=== PATIENT | male | born 1970 | race African-American/Black ===

== ENCOUNTER 2016-12-21 05:56 | Emergency (ER) | payer BC, MEDICAID ==
[2015-02-09 10:46] VITALS: BMI 23.6
[~2016-12-21 05:56] MED LIST: BETAPACE 80 MG80 MG PO; GLUCOPHAGE1000 MG PO
[2016-12-21 07:03] LABS: BASOPHILS 0.2 % (0.0-2.0); EOSINOPHILS 0.3 % (0-7); HEMATOCRIT 39.1 % (42.0-54.0); HEMOGLOBIN 13.5 g/dL (13.5-17.5); IMMATURE GRANULOCYTES 0.4 % (0-5); LYMPHOCYTES 21.6 % (15-50); MCH 31.6 pg (26.0-34.0); MCHC 34.5 g/dL (31.0-37.0); MCV 91.6 fL (80.0-100.0); MEAN PLATELET VOLUME 11.3 fL (7.4-10.4); NEUTROPHILS 73.5 % (40-80); PLATELET COUNT 162 10x3/uL (130-400); RBC 4.27 10x6/uL (4.20-6.10); RDW 12.4 % (11.5-14.5)
[2016-12-21 07:20] LABS: ALKALINE PHOSPHATASE 113 U/L (46-116); ALT (SGPT) 33 U/L (10-68); BILIRUBIN - TOTAL 0.36 mg/dL (0.2-1.3); CALC OSMOLALITY 292 mosm/kg (275-300); CALCIUM 9.5 mg/dL (8.5-10.1); CARBON DIOXIDE 26.6 mmol/L (21.0-32.0); CHLORIDE - SERUM 101 mmol/L (98-107); CREATININE - SERUM 0.9 mg/dL (0.6-1.3); GLUCOSE 323 mg/dL (74-106); MAGNESIUM - SERUM 1.9 mg/dL (1.8-2.4); POTASSIUM - SERUM 3.7 mmol/L (3.5-5.1); SODIUM 139 mmol/L (136-145); UREA NITROGEN 20 mg/dL (7-18); eGFR NON AFRICAN AMERICAN > 90 mL/min (90-120)
== END 2016-12-21 08:25 | disposition home or self-care (01) ==
LOC: D.ER 05:56
PROVIDERS: Emergency Medicine
DX: R11.10 Vomiting, unspecified (principal); R19.7 Diarrhea, unspecified; R10.9 Unspecified abdominal pain; E11.9 Type 2 diabetes mellitus without complications

== ENCOUNTER 2017-01-06 10:51 | Emergency (ER) | payer MEDICAID, BC ==
[2015-02-09 10:46] VITALS: BMI 23.6
[2017-01-06 11:21] LABS: BASOPHILS 0.3 % (0.0-2.0); EOSINOPHILS 0.4 % (0-7); HEMATOCRIT 40.9 % (42.0-54.0); HEMOGLOBIN 14.1 g/dL (13.5-17.5); IMMATURE GRANULOCYTES 0.6 % (0-5); LYMPHOCYTES 31.4 % (15-50); MCHC 34.5 g/dL (31.0-37.0); MEAN PLATELET VOLUME 10.3 fL (7.4-10.4); MONOCYTES 7.2 % (2-11); NEUTROPHILS 60.1 % (40-80); RDW 12.3 % (11.5-14.5); WBC 7.2 10x3/uL (4.8-10.8)
[2017-01-06 11:23] LABS: PLATELET COUNT 230 10x3/uL (130-400)
[2017-01-06 11:34] LABS: APTT 23.7 SECONDS (22.8-39.4); INR 0.99 (0.85-1.17); PROTIME 12.9 SECONDS (11.6-15.0)
[2017-01-06 11:43] LABS: ALBUMIN 4.2 g/dL (3.4-5.0); ALKALINE PHOSPHATASE 100 U/L (46-116); ALT (SGPT) 30 U/L (10-68); BILIRUBIN - TOTAL 0.55 mg/dL (0.2-1.3); CALC OSMOLALITY 284 mosm/kg (275-300); CARBON DIOXIDE 25.9 mmol/L (21.0-32.0); CHLORIDE - SERUM 97 mmol/L (98-107); GLUCOSE 325 mg/dL (74-106); POTASSIUM - SERUM 3.8 mmol/L (3.5-5.1); SODIUM 136 mmol/L (136-145); UREA NITROGEN 13 mg/dL (7-18); eGFR NON AFRICAN AMERICAN 86 mL/min (90-120)
== END 2017-01-06 15:55 | disposition home or self-care (01) ==
LOC: D.ER 10:51
PROVIDERS: Emergency Medicine
DX: R53.1 Weakness (principal); I10 Essential (primary) hypertension; E11.8 Type 2 diabetes mellitus with unspecified complications; F17.200 Nicotine dependence, unspecified, uncomplicated; R00.0 Tachycardia, unspecified

== ENCOUNTER 2017-08-07 08:51 | Emergency (ER) | payer BC ==
[2015-02-09 10:46] VITALS: BMI 23.6
== END 2017-08-07 12:28 | disposition home or self-care (01) ==
LOC: D.ER 08:51
DX: A08.4 Viral intestinal infection, unspecified (principal); E11.9 Type 2 diabetes mellitus without complications; M79.645 Pain in left finger(s); I10 Essential (primary) hypertension

== ENCOUNTER 2017-09-17 22:24 | Emergency (ER) | payer BC ==
[2015-02-09 10:46] VITALS: BMI 23.6
== END 2017-09-17 23:15 | disposition home or self-care (01) ==
LOC: D.ER 22:24
DX: S91.331A Puncture wound without foreign body, right foot, initial encounter (principal); W45.0XXA Nail entering through skin, initial encounter; Y93.89 Activity, other specified; Y92.029 Unspecified place in mobile home as the place of occurrence of the external cause